=== PATIENT | male | born 1965 | race Caucasian/White ===

== ENCOUNTER 2022-01-03 11:26 | Emergency (ER) | payer BC ==
[2022-01-03] MEDS ORDERED: Multivitamins, Adult 10 ML, Thiamine HCl 100 MG, Folic Acid 1 MG in Dextrose 5 %-0.45 %... IV SCH (12:15)
[2022-01-03 12:41] LABS: Hemoglobin 12.7 g/dL (14.0-18.0); Mean Corpuscular HGB CONC 33.8 g/dL (32.0-36.0); Mean Corpuscular Hemoglobin 34.2 pg (27.0-31.0); Mean Platelet Volume 11.2 fL (7.4-10.4); Platelet Count 86 10x3/uL (130-400); RBC Distribution Width 16.6 % (11.5-14.5); White Blood Cell (WBC) Count 7.7 10x3/uL (4.8-10.8)
[2022-01-03 12:44] LABS: #Basophils 0.1 thou/uL (0.0-0.2); #Lymphocytes 0.9 thou/uL (1.20-3.40); #Monocytes 0.8 thou/uL (0.11-0.59); #Neutrophils 5.9 thou/uL (1.40-6.50); %Basophils 0.9 % (0.0-1.0); %Eosinophils 0.6 % (0.0-10.0); %Lymphocytes 11.1 % (21.0-51.0); %Neutrophils 76.5 % (42.0-75.0)
[2022-01-03 12:45] LABS: Bilirubin Negative (Negative); Blood, Urine Negative (Negative); Clarity Clear (Clear); Glucose, Urine (Dipstick) 70 mg/dL (Negative); Ketone, Urine 10 mg/dL (Negative); Leukocyte Negative Leu/uL (Negative); Nitrite Negative (Negative); Protein, Urine (Dipstick) 10 mg/dL (Neg-Trace); Specific Gravity, Urine 1.011 (1.002-1.036); Urobilinogen Normal mg/dL (Less than 2); pH, Urine 6.5 (5.0-9.0)
[2022-01-03] MEDS ORDERED: Amlodipine 5 MG TAB ONE ×2 (12:51→12:52)
[2022-01-03] MEDS ORDERED: Ibuprofen 200 MG TAB ONE (12:52)
[2022-01-03] MEDS ORDERED: Magnesium 2 GM/50 ML BAG (IN WATER) ONE (12:52)
[2022-01-03 12:53] LABS: ALT (SGPT) 128 U/L (8-55); AST (SGOT) 302 U/L (5-34); Acetaminophen Less than 10.0 mcg/mL (10.0-30.0); Alcohol Less than 10 mg/dL (Less than 10); Alkaline Phosphatase 172 U/L (40-110); Anion Gap 17 mmol/L (10-20); BUN (Urea Nitrogen) 8 mg/dL (8.4-25.7); Bilirubin, Total 8.9 mg/dL (0.2-1.2); Calc. Creatinine Clearance 0 mL/min (70-130); Calcium 8.6 mg/dL (7.8-10.44); Carbon Dioxide 25 mmol/L (22-29); Chloride 93 mmol/L (98-107); Estimated GFR 110; Globulin 2.3 g/dL (2.4-3.5); Glucose 154 mg/dL (70-105); Magnesium 1.2 mg/dL (1.6-2.6); Potassium 3.1 mmol/L (3.5-5.1); Protein, Total 6.3 g/dL (6.0-8.3); Salicylate Less than 8.0 mg/dL (15.0-30.0); Sodium 132 mmol/L (136-145)
[2022-01-03 12:54] LABS: Amphetamine Not Detected (NotDetected); Barbiturates Screen Not Detected (NotDetected); Benzodiazepine Screen Not Detected (NotDetected); Cocaine Metabolite Screen Not Detected (NotDetected); Methadone Not Detected (NotDetected); Methamphetamine Not Detected (NotDetected); Opiate Screen Not Detected (NotDetected); Oxycodone Screen Not Detected (NotDetected); Phencyclidine (PCP) Not Detected (NotDetected); THC/Cannabinoid Screen Detected (NotDetected); Tricyclic Screen Not Detected (NotDetected)
[2022-01-03 12:58] LABS: Anisocytosis SLIGHT = 6-15 cells (100X) (0-5/hpf); MDiff Complete? YES; Macrocytosis SLIGHT = 6-15 cells (100X) (0-5/hpf); Platelet Morphology Comment Appears Decreased; Polychromasia SLIGHT = 2-3 cells (100X) (0-2/hpf)
[2022-01-03] MEDS ORDERED: Hydrochlorothiazide 25 MG TAB PO SCH (13:15)
== END 2022-01-03 15:44 | disposition home or self-care (01) ==
LOC: ERS 11:26
DX: R56.9 Unspecified convulsions (principal); R74.01 Elevation of levels of liver transaminase levels; I10 Essential (primary) hypertension; Z87.891 Personal history of nicotine dependence; Z79.899 Other long term (current) drug therapy
CPT/HCPCS: 36415; 70450; 80053; 80306; 80307; 81003; 82140; 83735; 84443; 85025; 93005; 94760; J3411; J3475; J7042

== ENCOUNTER 2022-01-03 17:00 | Inpatient (IN) | payer BC ==
[~2022-01-03 17:00] MED LIST: Iopamidol-370 76% 500 ML 1 ML ONE
[2022-01-03] MEDS ORDERED: levETIRAcetam 500 MG/5 ML VIAL ONE (17:46)
[2022-01-03] MEDS ORDERED: Ondansetron ODT 4 MG TAB PO PRN (18:57)
[2022-01-03] MEDS ORDERED: Lorazepam 2 MG/ML VIAL IM PRN (18:57)
[2022-01-03] MEDS ORDERED: Lorazepam 1 MG TAB PO PRN (18:57)
[2022-01-03] MEDS ORDERED: Electrolyte Replacement Protocol 1 EACH FS SCH (19:00)
[2022-01-03 19:20] LABS: #Basophils 0.1 thou/uL (0.0-0.2); #Lymphocytes 1.1 thou/uL (1.20-3.40); #Monocytes 1.1 thou/uL (0.11-0.59); #Neutrophils 6.9 thou/uL (1.40-6.50); %Basophils 0.8 % (0.0-1.0); %Eosinophils 0.1 % (0.0-10.0); %Lymphocytes 11.5 % (21.0-51.0); %Monocytes 11.6 % (0.0-10.0); %Neutrophils 75.9 % (42.0-75.0); Hemoglobin 12.4 g/dL (14.0-18.0); Mean Corpuscular Hemoglobin 34.2 pg (27.0-31.0); Platelet Count 78 10x3/uL (130-400); RBC Distribution Width 16.5 % (11.5-14.5); Red Blood Cell (RBC) Count 3.63 mill/uL (4.70-6.10); White Blood Cell (WBC) Count 9.1 10x3/uL (4.8-10.8)
[2022-01-03 19:43] LABS: ALT (SGPT) 125 U/L (8-55); AST (SGOT) 292 U/L (5-34); Alkaline Phosphatase 163 U/L (40-110); Anion Gap 12 mmol/L (10-20); BUN (Urea Nitrogen) 6 mg/dL (8.4-25.7); Bilirubin, Total 10.2 mg/dL (0.2-1.2); Calc. Creatinine Clearance 0 mL/min (70-130); Calcium 8.5 mg/dL (7.8-10.44); Carbon Dioxide 27 mmol/L (22-29); Chloride 94 mmol/L (98-107); Estimated GFR 113; Globulin 2.2 g/dL (2.4-3.5); Glucose 153 mg/dL (70-105); Magnesium 1.9 mg/dL (1.6-2.6); Protein, Total 6.2 g/dL (6.0-8.3); Sodium 130 mmol/L (136-145)
[2022-01-03 19:56] LABS: #Lymphocytes 1.2 thou/uL (1.20-3.40); #Monocytes 1.2 thou/uL (0.11-0.59); #Neutrophils 7.4 thou/uL (1.40-6.50); %Basophils 0.3 % (0.0-1.0); %Eosinophils 0.2 % (0.0-10.0); %Lymphocytes 12.3 % (21.0-51.0); %Monocytes 12.1 % (0.0-10.0); %Neutrophils 75.1 % (42.0-75.0); Hemoglobin 12.3 g/dL (14.0-18.0); Mean Corpuscular HGB CONC 33.2 g/dL (32.0-36.0); Mean Corpuscular Hemoglobin 33.4 pg (27.0-31.0); Mean Platelet Volume 10.8 fL (7.4-10.4); Platelet Count 79 10x3/uL (130-400); RBC Distribution Width 16.5 % (11.5-14.5); Red Blood Cell (RBC) Count 3.69 mill/uL (4.70-6.10); White Blood Cell (WBC) Count 9.9 10x3/uL (4.8-10.8)
[2022-01-03 20:11] LABS: Phosphorus 1.6 mg/dL (2.3-4.7)
[2022-01-03 21:25] VITALS: BMI 22.4
[2022-01-03] MEDS ORDERED: Magnesium 2 GM/50 ML(in water) 2 GM in Premix Bag 1 BAG IVPB SCH (21:30)
[2022-01-03] MEDS ORDERED: Potassium Chloride 20 MEQ TAB PO SCH (21:30)
[2022-01-03] MEDS ORDERED: Meloxicam 15 MG TAB PO PRN (22:05)
[2022-01-03] MEDS: PHOS-NAK 1 PKT PACK PO SCH (22:36)
[2022-01-03] MEDS: Famotidine 20 MG TAB PO SCH (22:37)
[2022-01-03] MEDS: levETIRAcetam 500 MG/5 ML VIAL SLOW IVP SCH (22:38)
[2022-01-03] MEDS: Thiamine HCl 200 MG/2 ML VIAL SLOW IVP SCH (22:40)
[2022-01-03 23:36] LABS: Syphilis Antibody Nonreactive (Nonreactive); Syphilis Antibody Index 0.03 S/CO (<1.00 Non-Reactive)
[2022-01-03] MEDS: Magnesium Chloride 64 MG TAB PO SCH (23:59)
[2022-01-03] MEDS: Lorazepam 1 MG TAB PO SCH (23:59)
[2022-01-04] MEDS: Lorazepam 1 MG TAB PO SCH ×4 (02:15→20:38)
[2022-01-04] MEDS: PHOS-NAK 1 PKT PACK PO SCH (03:00)
[2022-01-04 03:07] LABS: SARS-CoV-2 NAA Rapid Test Not Detected (NotDetected)
[2022-01-04 06:19] LABS: Phosphorus 3.3 mg/dL (2.3-4.7)
[2022-01-04 06:31] LABS: ALT (SGPT) 116 U/L (8-55); AST (SGOT) 261 U/L (5-34); Albumin 3.8 g/dL (3.5-5.0); Alkaline Phosphatase 152 U/L (40-110); Anion Gap 14 mmol/L (10-20); BUN (Urea Nitrogen) 9 mg/dL (8.4-25.7); Calc. Creatinine Clearance 106 mL/min (70-130); Calcium 8.7 mg/dL (7.8-10.44); Carbon Dioxide 28 mmol/L (22-29); Chloride 97 mmol/L (98-107); Estimated GFR 109; Globulin 1.7 g/dL (2.4-3.5); Glucose 102 mg/dL (70-105); Magnesium 2.4 mg/dL (1.6-2.6); Potassium 3.6 mmol/L (3.5-5.1); Protein, Total 5.5 g/dL (6.0-8.3); Sodium 135 mmol/L (136-145)
[2022-01-04 06:38] LABS: #Basophils 0.1 thou/uL (0.0-0.2); #Eosinphils 0.2 thou/uL (0.0-0.7); #Lymphocytes 1.7 thou/uL (1.20-3.40); #Neutrophils 4.6 thou/uL (1.40-6.50); %Basophils 1.1 % (0.0-1.0); %Eosinophils 2.2 % (0.0-10.0); %Lymphocytes 22.4 % (21.0-51.0); %Monocytes 12.9 % (0.0-10.0); %Neutrophils 61.4 % (42.0-75.0); Hemoglobin 12.2 g/dL (14.0-18.0); Mean Corpuscular HGB CONC 33.7 g/dL (32.0-36.0); Mean Corpuscular Hemoglobin 34.6 pg (27.0-31.0); Mean Platelet Volume 11.3 fL (7.4-10.4); Platelet Count 73 10x3/uL (130-400); RBC Distribution Width 16.3 % (11.5-14.5); Red Blood Cell (RBC) Count 3.51 mill/uL (4.70-6.10); White Blood Cell (WBC) Count 7.5 10x3/uL (4.8-10.8)
[2022-01-04] MEDS ORDERED: Lisinopril/Hydrochlorothiazide 10 mg/12.5 mg Tablet PO SCH (09:00)
[2022-01-04] MEDS: levETIRAcetam 500 MG/5 ML VIAL SLOW IVP SCH ×2 (09:11→20:39)
[2022-01-04] MEDS: Magnesium Chloride 64 MG TAB PO SCH ×3 (09:11→20:36)
[2022-01-04] MEDS: Famotidine 20 MG TAB PO SCH ×2 (09:12→20:39)
[2022-01-04] MEDS: Folic Acid 1 MG TAB PO SCH (09:12)
[2022-01-04] MEDS: Multivit, Therapeutic 1 TAB PO SCH (09:12)
[2022-01-04] MEDS ORDERED: Ketorolac Tromethamine 30 MG/ML VIAL IVP SCH (10:45)
[2022-01-04] MEDS ORDERED: Aluminum & Magnesium Hydroxide 60 ML, Lidocaine 2% Viscous Solution 30 ML, diphenhydrAM... SSW PRN (16:17)
[2022-01-04] MEDS ORDERED: Ketorolac Tromethamine 30 MG/ML VIAL IVP PRN (16:45)
[2022-01-04] MEDS ORDERED: Lorazepam 1 MG TAB PO PRN (18:57)
[2022-01-04] MEDS: Thiamine HCl 200 MG/2 ML VIAL SLOW IVP SCH (20:38)
[2022-01-05] MEDS: Lorazepam 1 MG TAB PO SCH ×3 (01:56→12:37)
[2022-01-05 05:48] LABS: #Basophils 0.1 thou/uL (0.0-0.2); #Eosinphils 0.3 thou/uL (0.0-0.7); #Lymphocytes 2.1 thou/uL (1.20-3.40); #Monocytes 0.9 thou/uL (0.11-0.59); #Neutrophils 4.9 thou/uL (1.40-6.50); %Basophils 0.8 % (0.0-1.0); %Eosinophils 3.6 % (0.0-10.0); %Lymphocytes 25.2 % (21.0-51.0); %Monocytes 10.6 % (0.0-10.0); %Neutrophils 59.8 % (42.0-75.0); Hemoglobin 13.8 g/dL (14.0-18.0); Mean Corpuscular HGB CONC 33.8 g/dL (32.0-36.0); Mean Corpuscular Hemoglobin 34.8 pg (27.0-31.0); Platelet Count 103 10x3/uL (130-400); RBC Distribution Width 16.1 % (11.5-14.5); Red Blood Cell (RBC) Count 3.97 mill/uL (4.70-6.10); White Blood Cell (WBC) Count 8.2 10x3/uL (4.8-10.8)
[2022-01-05 06:33] LABS: ALT (SGPT) 124 U/L (8-55); AST (SGOT) 256 U/L (5-34); Albumin 4.1 g/dL (3.5-5.0); Alkaline Phosphatase 189 U/L (40-110); Anion Gap 13 mmol/L (10-20); BUN (Urea Nitrogen) 11 mg/dL (8.4-25.7); Bilirubin, Total 16.3 mg/dL (0.2-1.2); Calc. Creatinine Clearance 94 mL/min (70-130); Calcium 9.3 mg/dL (7.8-10.44); Carbon Dioxide 27 mmol/L (22-29); Chloride 94 mmol/L (98-107); Estimated GFR 105; Globulin 2.5 g/dL (2.4-3.5); Glucose 125 mg/dL (70-105); Potassium 3.3 mmol/L (3.5-5.1); Protein, Total 6.6 g/dL (6.0-8.3); Sodium 131 mmol/L (136-145)
[2022-01-05] MEDS: Magnesium Chloride 64 MG TAB PO SCH (08:51)
[2022-01-05] MEDS: levETIRAcetam 500 MG/5 ML VIAL SLOW IVP SCH (08:51)
[2022-01-05] MEDS: Multivit, Therapeutic 1 TAB PO SCH (08:52)
[2022-01-05] MEDS: Famotidine 20 MG TAB PO SCH (08:52)
[2022-01-05] MEDS: Folic Acid 1 MG TAB PO SCH (08:52)
[2022-01-05] MEDS ORDERED: Cholecalciferol 1,000 UNITS (25 MCG) TAB PO SCH (09:00)
[2022-01-05] MEDS ORDERED: Amlodipine 5 MG TAB PO SCH (09:00)
[2022-01-05] MEDS ORDERED: Lisinopril/Hydrochlorothiazide 20 mg/12.5 mg Tablet PO SCH (09:00)
[2022-01-05] MEDS ORDERED: Potassium Chloride 20 MEQ TAB PO SCH (12:00)
[2022-01-05 12:04] VITALS: BP 115/73; TEMP 97.3
[2022-01-05] MEDS ORDERED: Lorazepam 1 MG TAB PO PRN (18:57)
[2022-01-05] MEDS ORDERED: Lorazepam 0.5 MG TAB PO SCH (19:00)
[2022-01-06] MEDS ORDERED: FLU VACC QS2022-23(6MOS UP)/PF 60 MCG/0.5 ML SYRINGE IM ONE (09:00)
[2022-01-06] MEDS ORDERED: Lorazepam 0.5 MG TAB PO PRN (18:57)
[2022-01-06] MEDS ORDERED: Thiamine 100 MG TAB PO SCH (19:00)
== END 2022-01-05 14:29 | disposition home or self-care (01) | DRG 918 ==
LOC: ERS 17:00 → NEURO 19:03
PROVIDERS: ADMIT Family Medicine; ATTEND Family Medicine
PROC: HZ2ZZZZ Detoxification Services for Substance Abuse Treatment (ICD-10-PCS; principal; 2022-01-03)
DX: T51.0X1A Toxic effect of ethanol, accidental (unintentional), initial encounter (principal); E87.1 Hypo-osmolality and hyponatremia; R56.9 Unspecified convulsions; Z20.822 Contact with and (suspected) exposure to COVID-19; E11.9 Type 2 diabetes mellitus without complications; I10 Essential (primary) hypertension; K76.0 Fatty (change of) liver, not elsewhere classified; R79.89 Other specified abnormal findings of blood chemistry; F10.20 Alcohol dependence, uncomplicated; E87.6 Hypokalemia; J45.909 Unspecified asthma, uncomplicated; G89.29 Other chronic pain; M54.9 Dorsalgia, unspecified; F41.9 Anxiety disorder, unspecified; R74.01 Elevation of levels of liver transaminase levels; E83.42 Hypomagnesemia; Z90.89 Acquired absence of other organs; Z87.891 Personal history of nicotine dependence; Z82.49 Family history of ischemic heart disease and other diseases of the circulatory system; Z71.41 Alcohol abuse counseling and surveillance of alcoholic; Z79.899 Other long term (current) drug therapy
CPT/HCPCS: 36415; 70450; 70551; 74177; 80053; 80306; 80307; 81003; 82140; 83735; 84100; 84443; 85025; 86780; 93005; 94760; 95712; 95819; 95957; 96365; 96367; 96374; J1885; J1953; J3411; J3475; J7042; Q0162; Q9967; U0002